=== PATIENT | female | born 1980 | race Caucasian/White ===

== ENCOUNTER → 2019-05-04 | Outpatient (CLI) | payer OTHER ==
[~2019-05-04] MED LIST: ASPI81CH PO; BUPR150ER PO; CODACE30 PO; ESCI10 PO; INSUL100I SC; LABE100 PO; LOPE2C PO; LOSA25 PO; METO25ER PO; NAPR500 PO; PANT40 PO; PNV PRENATAL P1 EACH; SPIR25 PO; URSO300 PO; VIENVA-28 TABL1 EACH PO; Verotin-Gr Cap1 EACH PO
[2019-05-05 15:07] LABS: HPV 16 Negative (Negative); HPV 18 Negative (Negative); HPV OTHER HR TYPES Negative (Negative)
== END ==
LOC: LAB SHORT 12:38 → LAB 12:38
PROVIDERS: Nurse Practitioner Family
DX: Z01.419 Encounter for gynecological examination (general) (routine) without abnormal findings (principal)
CPT/HCPCS: 87624; G0145

== ENCOUNTER 2022-11-06 09:47 | Day surgery (SDC) | payer OTHER ==
[~2022-11-06] VITALS: Ht 160 cm; Wt 81.9 kg
[~2022-11-06 09:47] MED LIST changes: +FENO54 PO
[2022-11-06] MEDS ORDERED: ZOLOFT10013 PO (10:16)
[2022-11-06] MEDS ORDERED: Vyvanse50 MG PO (10:16)
[2022-11-06] MEDS ORDERED: BUPROPION XL150 M1 PO (10:16)
--- NOTE | 2022-11-06 11:18 | NUR ---
11/06/22 1118 Salma Alfonso TIME OUT PERFORMED 1108 PRIOR TO ADMIN OF VERSED
[2022-11-06 11:57] VITALS: BP 137/82
== END 2022-11-06 12:24 | disposition home or self-care (01) ==
LOC: ORSCSDS 09:47
PROVIDERS: Orthopaedic Surgery
PROC: 0LN70ZZ Release Right Hand Tendon, Open Approach (ICD-10-PCS; principal; 2022-11-06 11:00)
PROC: 01N54ZZ Release Median Nerve, Percutaneous Endoscopic Approach (ICD-10-PCS; principal; 2022-11-06 11:00)
DX: G56.01 Carpal tunnel syndrome, right upper limb (principal); M65.351 Trigger finger, right little finger; M25.531 Pain in right wrist; I10 Essential (primary) hypertension; Z87.891 Personal history of nicotine dependence; Z79.899 Other long term (current) drug therapy
CPT/HCPCS: J2250; J7120

== ENCOUNTER → 2023-04-09 | Outpatient (CLI) | payer OTHER ==
[~2023-04-09] MED LIST changes: +BUPROPION XL150 M1 PO; +Vyvanse50 MG PO; +ZOLOFT10013 PO
[2023-04-13 19:39] LABS: PANCREATIC ELASTASE,FECAL >800 ug/g (>=100)
[2023-04-13 19:40] LABS: CALPROTECTIN,FECAL 7 ug/g (<=49)
== END ==
LOC: LAB SHORT 09:25 → LAB 09:25
PROVIDERS: Family Medicine
DX: R19.7 Diarrhea, unspecified (principal)
CPT/HCPCS: 82653; 83993

== ENCOUNTER → 2024-04-08 | Outpatient (CLI) | payer OTHER | LOC: LAB SHORT 19:21 → LAB 19:21 | DX: R30.0 Dysuria (principal) | CPT/HCPCS: 87086 ==

== ENCOUNTER 2024-04-14 15:42 | Inpatient (IN) | payer OTHER ==
[~2024-04-14] VITALS: Ht 160 cm; Wt 82.6 kg
[2024-04-14] MEDS ORDERED: NS 1,000 ML IV SCH ×2 (22:55→23:10)
[2024-04-14] MEDS ORDERED: Piperacillin/Tazobactam Sod 4.5 GM in NS 100 ML IV ONE (22:55)
[2024-04-14] MEDS ORDERED: Ketorolac Tromethamine 30mg Vial IV ONE (23:00)
[2024-04-14] MEDS ORDERED: HYDROmorphone HCl/Pf 1MG SYR IV PRN (23:10)
[2024-04-14] MEDS ORDERED: Lactated Ringer's 1,000 ML IV SCH (23:10)
[2024-04-14] MEDS ORDERED: Ondansetron HCl 2 MG / ML 2ML Vial IV ONE (23:10)
[2024-04-14] MEDS ORDERED: Ondansetron HCl 2 MG / ML 2ML Vial IV PRN (23:10)
[2024-04-14] MEDS ORDERED: Acetaminophen 325 MG TABLET PO ONE (23:10)
[2024-04-15 00:43] VITALS: BP 141/73
--- NOTE | 2024-04-15 04:27 | NUR ---
SHIFT SUMMARY MOHINI WAS ALERT AND FULLY ORIENTED WHEN SHE ARRIVED FROM THE ED. PT INDEPENDENT AND ABLE TO SAFELY AMBULATE. PT PAIN NOT REQUIRING MEDICATION AT THIS TIME. PT HAS MILD NAUSEA INTERMITTENTLY, DENYING NEED FOR ANTIEMETICS. PT FEVER OF 102.4 DURING ASSESMENT, TYLENOL GIVEN, REPEAT TEMP 99.2. NO ACUTE EVENTS, PT KEPT NPO FROM MIDNIGHT.
[2024-04-15 04:56] VITALS: BP 139/83
[2024-04-15] MEDS ORDERED: Acetaminophen 325 MG TABLET PO PRN (05:00)
[2024-04-15 07:01] VITALS: BP 129/69
[2024-04-15] MEDS ORDERED: Ketorolac Tromethamine 15mg Vial IV PRN (09:30)
[2024-04-15] MEDS ORDERED: FLU VACC TS2024-25(6MOS UP)/PF 45 MCG/0.5 ML SYRINGE IM PRN (10:45)
[2024-04-15] MEDS ORDERED: Lactated Ringer's 1,000 ML IV SCH (10:45)
[2024-04-15 15:32] VITALS: BP 135/82
--- NOTE | 2024-04-15 17:45 | NUR ---
SHIFT SUMMARY AOX4, PATIENT MEDICATED FOR FEVERS T/O SHIFT. PATIENT IS ON CL SHE IS NOT SCHEDULED FOR OR SEE SURGEON NOTES. PATIENT IS VOIDING, TOLERATING CL AND DENIES PAIN. PLAN IS TO MONITOR FEVERS.
[2024-04-15] MEDS ORDERED: Ondansetron HCl 2 MG / ML 2ML Vial IV PRN (19:00)
[2024-04-15] MEDS ORDERED: Potassium Chloride 20 MEQ/15 ML UDC PO ONE (19:00)
[2024-04-15] MEDS ORDERED: HYDROmorphone HCl/Pf 1MG SYR IV PRN (19:05)
[2024-04-15] MEDS ORDERED: Metoclopramide HCl 5MG / ML 2ML Vial IV PRN (19:05)
[2024-04-15 19:27] LABS: BASOPHILS ABSOLUTE AUTO 0.07 K/mm3 (0.00-0.23); BASOPHILS PERCENT AUTO 0 % (0-2); EOSINOPHILS ABSOLUTE AUTO 0.02 K/mm3 (0.00-0.68); EOSINOPHILS PERCENT AUTO 0 % (0-6); Hemoglobin 9.8 g/dL (11.5-16.0); IMMATURE GRAN PERCENT AUTO 3 % (0-1); LYMPHOCYTES ABSOLUTE AUTO 0.89 K/mm3 (0.84-5.20); LYMPHOCYTES PERCENT AUTO 4 % (21-46); MONOCYTES ABSOLUTE AUTO 1.01 K/mm3 (0.16-1.47); MONOCYTES PERCENT AUTO 5 % (4-13); Mean Corpuscular HGB 29.9 pg (26.0-34.0); Mean Corpuscular HGB Conc 33.8 g/dL (31.5-36.5); Mean Corpuscular Volume 88 fL (80-100); Mean Platelet Volume 7.7 fL (9.1-12.4); NEUTROPHILS ABSOLUTE AUTO 18.61 K/mm3 (1.96-9.15); NEUTROPHILS PERCENT AUTO 88 % (41-73); Platelet Count 311 K/mm3 (150-400); RDW Coefficient Variation 12.1 % (11.7-14.2); RDW Standard Deviation 38.8 fL (35.1-46.3); Red Blood Cell Count 3.28 M/mm3 (3.80-5.20)
[2024-04-15 19:41] LABS: Source, Urine Clean Catch
[2024-04-15 19:43] LABS: Albumin, Blood 2.1 g/dL (3.4-5.0); Albumin/Globulin Ratio 0.5 (0.8-1.8); Bilirubin, Total 0.5 mg/dL (0.1-1.0); Bun/Creatinine Ratio 9.2 (12.0-20.0); Calcium, Blood 8.3 mg/dL (8.5-10.1); Creatinine, Blood 0.65 mg/dL (0.40-1.00); Globulin, Blood 4.2 g/dL (2.2-4.0); Total Protein, Blood 6.3 g/dL (6.4-8.2)
[2024-04-15 19:47] LABS: Appearance, Urine Clear (Clear); Bilirubin, Urine Neg (Neg); Blood, Urine Neg (Neg); Glucose Qualitative, Urine Neg (Neg); Ketones, Urine Neg (Neg); Leukocyte Esterase, Urine Neg (Neg); Nitrite, Urine Neg (Neg); Protein, Urine Neg (Neg); Specific Gravity, Urine 1.005 (1.003-1.022); Urobilinogen, Urine NORM (Normal)
[2024-04-15 19:57] LABS: Color, Urine Pale Yellow (P-Yellow)
[2024-04-15 20:30] VITALS: BP 120/60
[2024-04-15] MEDS ORDERED: CefTRIAXone Sodium 2,000 MG in NS 100 ML IV SCH (22:54)
[2024-04-16 03:33] VITALS: BP 148/79
--- NOTE | 2024-04-16 04:30 | NUR ---
SHIFT SUMMARY MOHINI WAS ALERT AND FULLY ORIENTED ON ASSESMENT. PT DISCOVERED TO HAVE SALMONELLA. PT HAVING BLADDER PAIN, UA NEGATIVE. CT SHOWS LARGE COMPLEX OVARIAN CYST. COLLET MAKING MACHINE OPERATOR CONSULTED. PT HAS HAD A TEMP RANGING 99-103 T/O NIGHT, RESPONDING TO TYLENOL AND TORRADOL, BUT RETURNING. NO ACUTE EVENTS TONIGHT. NO OTHER CHANGES NOTED.
[2024-04-16 05:50] LABS: Albumin/Globulin Ratio 0.5 (0.8-1.8); Bilirubin, Total 0.5 mg/dL (0.1-1.0); Bun/Creatinine Ratio 9.5 (12.0-20.0); Calcium, Blood 8.1 mg/dL (8.5-10.1); Creatinine, Blood 0.63 mg/dL (0.40-1.00); Globulin, Blood 4.1 g/dL (2.2-4.0); Potassium, Blood 3.2 mmol/L (3.5-5.5); Total Protein, Blood 6.1 g/dL (6.4-8.2)
[2024-04-16 07:22] VITALS: BP 151/75
[2024-04-16] MEDS ORDERED: buPROPion HCL 150 MG TAB.SR.12H PO SCH (09:00)
[2024-04-16] MEDS ORDERED: Metoprolol Succinate 25 MG TABCR PO SCH (09:00)
[2024-04-16] MEDS ORDERED: Fenofibrate 67 MG Cap PO SCH (09:00)
[2024-04-16] MEDS ORDERED: Sertraline HCl 100 MG Tab PO SCH (09:00)
[2024-04-16] MEDS ORDERED: Losartan Potassium 25 MG Tab PO SCH (09:00)
[2024-04-16] MEDS ORDERED: Potassium Chloride 20 MEQ TabCR PO ONE (10:00)
[2024-04-16 10:01] LABS: BASOPHILS ABSOLUTE AUTO 0.05 K/mm3 (0.00-0.23); BASOPHILS PERCENT AUTO 0 % (0-2); EOSINOPHILS ABSOLUTE AUTO 0.01 K/mm3 (0.00-0.68); EOSINOPHILS PERCENT AUTO 0 % (0-6); Hematocrit 29.9 % (33.0-51.0); Hemoglobin 9.9 g/dL (11.5-16.0); IMMATURE GRAN ABSOLUTE AUTO 0.62 K/mm3 (0.00-0.10); IMMATURE GRAN PERCENT AUTO 3 % (0-1); LYMPHOCYTES PERCENT AUTO 3 % (21-46); MONOCYTES ABSOLUTE AUTO 0.83 K/mm3 (0.16-1.47); MONOCYTES PERCENT AUTO 4 % (4-13); Mean Corpuscular HGB 29.9 pg (26.0-34.0); Mean Corpuscular HGB Conc 33.1 g/dL (31.5-36.5); Mean Corpuscular Volume 90 fL (80-100); Mean Platelet Volume 7.9 fL (9.1-12.4); NEUTROPHILS ABSOLUTE AUTO 19.95 K/mm3 (1.96-9.15); NEUTROPHILS PERCENT AUTO 90 % (41-73); Platelet Count 353 K/mm3 (150-400); RDW Coefficient Variation 12.2 % (11.7-14.2); RDW Standard Deviation 40.1 fL (35.1-46.3); Red Blood Cell Count 3.31 M/mm3 (3.80-5.20); White Blood Cell Count 22.16 K/mm3 (4.00-11.30)
[2024-04-16] MEDS ORDERED: Piperacillin/Tazobactam Sod 3.375 GM in NS 100 ML IV SCH (12:30)
[2024-04-16] MEDS ORDERED: NS 250 ML IV PRN (12:35)
[2024-04-16 14:43] VITALS: BP 138/73
--- NOTE | 2024-04-16 16:32 | NUR ---
SHIFT SUMMARY: PATIENT A/OX4, CALM, PLEASANT AND COOPERATIVE c CARE. PATIENT HAD A MAX TEMP OF 102.5 THIS SHIFT, MEDICATED FOR FEVER PER EMAR c SLIGHT EFFECT, DR. DURBIN IS AWARE OF THIS ISSUE. PATIENT IV ABX CHANGED TO ZOSYN TODAY. PATIENT HAD MRI TO PELVIS DONE TODAY, AWAITING FOR RESULT. PATIENT REPORTS PAIN TO ABDOMEN, MEDICATED PER EMAR c GOOD EFFECT. PATIENT DENIES N/V, SOB, CP/PRESSURE AND DIZZINESS. PATIENT CONTINENT OF BLADDER, AMBULATES TO BATHROOM INDEPENDENTLY T/O SHIFT. PATIENT RECEIVED SCHEDULED MEDS PER EMAR. VITAL SIGNS REVIEWED. CALL LIGHT IN REACH.
[2024-04-16 19:49] VITALS: BP 144/85
[2024-04-16] MEDS ORDERED: Lactobacil 2-S.Thermo-Bifido 1 1 Cap PO SCH (21:00)
[2024-04-17 03:10] VITALS: BP 133/73
--- NOTE | 2024-04-17 04:06 | NUR ---
SHIFT SUMMARY MOHINI WAS ALERT AND FULLY ORIENTED ON ASSESMENT. PAIN WELL MANAGED. PT STILL HAVING INTERMITTENT NAUSEA, NO VOMITING THIS SHIFT. AVERAGE TEMP TONIGHT LOWER THAN PREVIOUS NIGHT, STILL ELEVATED 100-102 DEGREES PT PLACED ON CONTACT PRECAUTIONS FOR SALMONELLA. NO ACUTE EVENTS TONIGHT. NO NOTED CHANGES TO PT CONDITION.
[2024-04-17 04:36] LABS: BASOPHILS ABSOLUTE AUTO 0.04 K/mm3 (0.00-0.23); BASOPHILS PERCENT AUTO 0 % (0-2); EOSINOPHILS ABSOLUTE AUTO 0.01 K/mm3 (0.00-0.68); EOSINOPHILS PERCENT AUTO 0 % (0-6); Hematocrit 26.2 % (33.0-51.0); Hemoglobin 8.8 g/dL (11.5-16.0); IMMATURE GRAN ABSOLUTE AUTO 0.28 K/mm3 (0.00-0.10); IMMATURE GRAN PERCENT AUTO 2 % (0-1); LYMPHOCYTES ABSOLUTE AUTO 0.87 K/mm3 (0.84-5.20); LYMPHOCYTES PERCENT AUTO 5 % (21-46); MONOCYTES ABSOLUTE AUTO 0.97 K/mm3 (0.16-1.47); MONOCYTES PERCENT AUTO 5 % (4-13); Mean Corpuscular HGB Conc 33.6 g/dL (31.5-36.5); Mean Corpuscular Volume 89 fL (80-100); Mean Platelet Volume 7.7 fL (9.1-12.4); NEUTROPHILS ABSOLUTE AUTO 16.54 K/mm3 (1.96-9.15); NEUTROPHILS PERCENT AUTO 88 % (41-73); Platelet Count 284 K/mm3 (150-400); RDW Coefficient Variation 12.2 % (11.7-14.2); RDW Standard Deviation 40.2 fL (35.1-46.3); Red Blood Cell Count 2.93 M/mm3 (3.80-5.20); White Blood Cell Count 18.71 K/mm3 (4.00-11.30)
[2024-04-17 05:05] LABS: Albumin, Blood 1.9 g/dL (3.4-5.0); Albumin/Globulin Ratio 0.5 (0.8-1.8); Bilirubin, Direct 0.2 mg/dL (0.0-0.3); Bilirubin, Indirect 0.3 mg/dL (0.1-0.7); Bilirubin, Total 0.5 mg/dL (0.1-1.0); Bun/Creatinine Ratio 9.3 (12.0-20.0); Calcium, Blood 7.9 mg/dL (8.5-10.1); Creatinine, Blood 0.54 mg/dL (0.40-1.00); Globulin, Blood 3.9 g/dL (2.2-4.0); Potassium, Blood 3.7 mmol/L (3.5-5.5); Total Protein, Blood 5.8 g/dL (6.4-8.2)
[2024-04-17 07:22] VITALS: BP 130/72
[2024-04-17] MEDS ORDERED: Lactated Ringer's 1,000 ML IV SCH (09:30)
--- NOTE | 2024-04-17 10:00 | NUR ---
DR FELTON IN TO SEE PT.
--- NOTE | 2024-04-17 11:18 | NUR ---
dr mercer in to see pt.
[2024-04-17 12:56] LABS: Adenovirus Not Detected (NOT DETECT); Bordetella pertussis Not Detected (NOT DETECT); Chlamydophila pneumoniae Not Detected (NOT DETECT); Coronavirus 229E Not Detected (NOT DETECT); Coronavirus HKU1 Not Detected (NOT DETECT); Coronavirus NL63 Not Detected (NOT DETECT); Coronavirus OC43 Not Detected (NOT DETECT); Human Metapneumovirus Not Detected (NOT DETECT); Human Rhinovirus/Enterovirus Not Detected (NOT DETECT); Influenza A/2009-H1 Not Detected (NOT DETECT); Influenza A/H1 Not Detected (NOT DETECT); Influenza A/H3 Not Detected (NOT DETECT); Influenza B Not Detected (NOT DETECT); Mycoplasma pneumoniae Not Detected (NOT DETECT); Parainfluenza Virus 1 Not Detected (NOT DETECT); Parainfluenza Virus 2 Not Detected (NOT DETECT); Parainfluenza Virus 3 Not Detected (NOT DETECT); Parainfluenza Virus 4 Not Detected (NOT DETECT); Respiratory Syncytial Virus Not Detected (NOT DETECT); SARS-Cov-2 (COVID-19), BioFire Not Detected (NOT DETECT)
[2024-04-17] MEDS ORDERED: Enoxaparin 40 MG/0.4 ML SYR SC SCH (15:00)
--- NOTE | 2024-04-17 15:26 | NUR ---
PT HAS FOLLOW UP APPT W/DR FELTON ON 04/21/24 AT 0900.
[2024-04-17 16:52] VITALS: BP 135/78
--- NOTE | 2024-04-17 17:09 | NUR ---
SUMMARY PT HAS BEEN FEBRILE T/O DAY. ALTERNATED IN BETWEEN TYLENOL AND TORADOL PER ORDERS FOR FEVER. MEDICATED PT PER ORDERS W/DILAUDID T/O DAY FOR LOWER ABD PAIN. PT VOIDING. DID NOT HAVE BM THIS SHIFT. INDEPENDENT IN ROOM. CALL LIGHT IN REACH.
[2024-04-17 19:42] VITALS: BP 126/73
[2024-04-17] MEDS ORDERED: Acetaminophen 325 MG TABLET PO ONE (20:30)
--- NOTE | 2024-04-18 04:39 | NUR ---
.SHIFT SUMMARY VSS, FEVERS NOTED T/O THE NIGHT. PT MEDICATED PER EMAR FOR TEMPERATURE CONTROL, AND RECIEVED ORDER FOR EARLY TYLENOL DOSE X1 W/ MINIMAL IMPROVEMENT. PT NOTED TO HAVE EPISODES OF DISPHORESIS, AND OTHERS OF SHIVERING. PT HAS SLEPT ON AND OFF T/O THE NIGHT. PT ENDORSES LOWER ABD PAIN. PT MEDICATED PER EMAR W/TOLLERABLE RESULTS. SHE IS UTILIZING AN ICE PACK PRN W/GOOD RESULTS. OVERALL, NO ACUTE EVENTS NOTED. PLAN TO CONTINUE IV ABX
[2024-04-18 06:02] VITALS: BP 137/81
[2024-04-18 06:30] LABS: BASOPHILS ABSOLUTE AUTO 0.05 K/mm3 (0.00-0.23); BASOPHILS PERCENT AUTO 0 % (0-2); EOSINOPHILS ABSOLUTE AUTO 0.03 K/mm3 (0.00-0.68); EOSINOPHILS PERCENT AUTO 0 % (0-6); Hematocrit 29.3 % (33.0-51.0); Hemoglobin 9.7 g/dL (11.5-16.0); IMMATURE GRAN ABSOLUTE AUTO 0.38 K/mm3 (0.00-0.10); IMMATURE GRAN PERCENT AUTO 2 % (0-1); LYMPHOCYTES ABSOLUTE AUTO 0.78 K/mm3 (0.84-5.20); LYMPHOCYTES PERCENT AUTO 4 % (21-46); MONOCYTES ABSOLUTE AUTO 0.77 K/mm3 (0.16-1.47); MONOCYTES PERCENT AUTO 4 % (4-13); Mean Corpuscular HGB 29.8 pg (26.0-34.0); Mean Corpuscular HGB Conc 33.1 g/dL (31.5-36.5); Mean Corpuscular Volume 90 fL (80-100); Mean Platelet Volume 7.9 fL (9.1-12.4); NEUTROPHILS ABSOLUTE AUTO 18.49 K/mm3 (1.96-9.15); NEUTROPHILS PERCENT AUTO 90 % (41-73); Platelet Count 340 K/mm3 (150-400); RDW Coefficient Variation 12.4 % (11.7-14.2); RDW Standard Deviation 41.1 fL (35.1-46.3); Red Blood Cell Count 3.25 M/mm3 (3.80-5.20)
[2024-04-18 06:52] LABS: Albumin/Globulin Ratio 0.5 (0.8-1.8); Bilirubin, Total 0.8 mg/dL (0.1-1.0); Bun/Creatinine Ratio 7.1 (12.0-20.0); Calcium, Blood 8.5 mg/dL (8.5-10.1); Creatinine, Blood 0.71 mg/dL (0.40-1.00); Globulin, Blood 4.4 g/dL (2.2-4.0); Potassium, Blood 3.3 mmol/L (3.5-5.5); Total Protein, Blood 6.4 g/dL (6.4-8.2)
[2024-04-18 08:03] VITALS: BP 142/83
[2024-04-18] MEDS ORDERED: Potassium Chloride 20 MEQ TabCR PO ONE (09:40)
--- NOTE | 2024-04-18 10:32 | NUR ---
DR MALONEY IN TO SEE PT.
--- NOTE | 2024-04-18 13:38 | NUR ---
DR ESCOBAR IN TO SEE PT.
--- NOTE | 2024-04-18 14:32 | NUR ---
LAB IN TO DRAW PT.
[2024-04-18 15:45] LABS: Ferritin, Serum 582 ng/mL (8-252); Iron Serum 14 ug/dL (50-170); Percent Saturation 5.7 % (15.0-50.0); Total Iron Binding Capacity 247 ug/dL (250-450)
[2024-04-18 16:03] LABS: C-REACTIVE PROTEIN, EXT RANGE >19.000 mg/dL (0.000-0.300)
[2024-04-18 16:37] VITALS: BP 139/86
[2024-04-18 16:49] LABS: Bacterial Vaginosis PCR Negative (NEGATIVE); Candida glabrata-krusei, PCR NOT DETECTED (NOT DETECT)
[2024-04-18 17:10] LABS: Candida Group, PCR DETECTED (NOT DETECT)
[2024-04-18 17:10] LABS: Campylobacter Sp Not Detected (NOT DETECT); Plesiomonas Shigelloides Not Detected (NOT DETECT); Salmonella Sp Not Detected (NOT DETECT); Vibrio Sp Not Detected (NOT DETECT); Yersinia Enterocolitica Not Detected (NOT DETECT)
[2024-04-18 17:11] LABS: Adenovirus F 40/41 Not Detected (NOT DETECT); Astrovirus Not Detected (NOT DETECT); Cryptosporidium Not Detected (NOT DETECT); Cyclospora Cayetanensis Not Detected (NOT DETECT); E. Coli O157 Not Detected (NOT DETECT); Entamoeba Histolytica Not Detected (NOT DETECT); Enteroaggregative E. coli-EAEC Not Detected (NOT DETECT); Enteropathogenic E. coli-EPEC Not Detected (NOT DETECT); Enterotoxigenic E. coli-ETEC Not Detected (NOT DETECT); Giardia Lamblia Not Detected (NOT DETECT); Norovirus GI/GII Not Detected (NOT DETECT); Rotavirus A Not Detected (NOT DETECT); Sapovirus Not Detected (NOT DETECT); Shiga Toxin-prod E. coli-STEC Not Detected (NOT DETECT); Shigella/Enteroin E. coli-EIEC Not Detected (NOT DETECT); Vibrio Cholerae Not Detected (NOT DETECT)
--- NOTE | 2024-04-18 17:12 | NUR ---
SUMMARY PT HAS BEEN FEBRILE T/O SHIFT. MEDICATED PER ORDERS FOR FEVER, PAIN AND NAUSEA DURING SHIFT. PT HAD BM, WHICH WAS SENT OFF PER ORDERS. VAG SWAB COMPLETED PER ORDERS. LABS DRAWN. CT COMPLETED. PT RECEIVING FLUIDS AND ABX PER EMAR. PT INDEPENDENT IN ROOM. CALL LIGHT IN REACH.
[2024-04-18 17:21] LABS: Chlamydia Trachomatis Vaginal NOT DETECTED (NOT DETECT); Neisseria Gonorrhoea Vaginal NOT DETECTED (NOT DETECT)
[2024-04-18 19:48] VITALS: BP 138/74
[2024-04-18] MEDS ORDERED: Doxycycline Hyclate 100 MG in Dextrose 5% 250 ML IV SCH (21:00)
[2024-04-19 03:36] VITALS: BP 152/90
[2024-04-19 06:17] LABS: BASOPHILS ABSOLUTE AUTO 0.03 K/mm3 (0.00-0.23); BASOPHILS PERCENT AUTO 0 % (0-2); EOSINOPHILS ABSOLUTE AUTO 0.03 K/mm3 (0.00-0.68); EOSINOPHILS PERCENT AUTO 0 % (0-6); Hematocrit 24.8 % (33.0-51.0); Hemoglobin 8.3 g/dL (11.5-16.0); IMMATURE GRAN ABSOLUTE AUTO 0.28 K/mm3 (0.00-0.10); IMMATURE GRAN PERCENT AUTO 1 % (0-1); LYMPHOCYTES ABSOLUTE AUTO 0.61 K/mm3 (0.84-5.20); LYMPHOCYTES PERCENT AUTO 3 % (21-46); MONOCYTES ABSOLUTE AUTO 0.82 K/mm3 (0.16-1.47); MONOCYTES PERCENT AUTO 4 % (4-13); Mean Corpuscular HGB 29.5 pg (26.0-34.0); Mean Corpuscular HGB Conc 33.5 g/dL (31.5-36.5); Mean Corpuscular Volume 88 fL (80-100); Mean Platelet Volume 8.2 fL (9.1-12.4); NEUTROPHILS ABSOLUTE AUTO 20.11 K/mm3 (1.96-9.15); NEUTROPHILS PERCENT AUTO 92 % (41-73); Platelet Count 356 K/mm3 (150-400); RDW Coefficient Variation 12.4 % (11.7-14.2); RDW Standard Deviation 39.8 fL (35.1-46.3); Red Blood Cell Count 2.81 M/mm3 (3.80-5.20); White Blood Cell Count 21.88 K/mm3 (4.00-11.30)
[2024-04-19 06:32] LABS: Albumin, Blood 1.8 g/dL (3.4-5.0); Albumin/Globulin Ratio 0.5 (0.8-1.8); Bilirubin, Total 0.6 mg/dL (0.1-1.0); Bun/Creatinine Ratio 7.3 (12.0-20.0); Calcium, Blood 8.4 mg/dL (8.5-10.1); Creatinine, Blood 0.55 mg/dL (0.40-1.00); Globulin, Blood 3.8 g/dL (2.2-4.0); Potassium, Blood 3.5 mmol/L (3.5-5.5); Total Protein, Blood 5.6 g/dL (6.4-8.2)
--- NOTE | 2024-04-19 07:16 | NUR ---
SHIFT SUMMARY; PATIENT SLEPT IN SHORT INTERVALS. DID HAVE 1 LOOSE BM. REMAINS IN CONTACT ISOALTION FOR SALMONELLA. LR/100ML/HR INFUSING. LOW GRADE TEMPS TONIGHT, MEDICATED FOR ABD. PAIN FREQUENTLY. NO NAUSEA.
[2024-04-19 07:34] VITALS: BP 126/66
[2024-04-19 14:11] VITALS: BP 135/70
[2024-04-19 18:59] VITALS: BP 120/70
--- NOTE | 2024-04-19 19:23 | NUR ---
SHIFT SUMMARY SHE WAS NPO FOR HER HIDA SCAN TODAY BUT ABLE TO EAT AFTERWARDS, TOLERATED DIET POST PROCEDURE, PLAN FOR NPO AT MIDNIGHT FOR POSSIBLE SURGERY TOMORROW PENDING SURGERY EVALUATION OF HIDA SCAN RESULTS. SHE WAS STILL FEVERISH TODAY WHICH WAS MANAGED PER EMAR, T MAX 103. NO ACUTE EVENTS THIS SHIFT, CALL LIGHT IN REACH.
[2024-04-20] VITALS (18 sets, daily range): BP systolic 99–127; BP diastolic 58–80
--- NOTE | 2024-04-20 04:34 | NUR ---
SHIFT SUMMARY S/P ABD PAIN. NO ACUTE CHANGES OVERNIGHT. VSS. PT NPO SINCE 0000 IN ANTICIPATION OF SURG LATER TODAY. IV FLUIDS/ABX INFUSING PER EMAR. VOIDING. IND IN ROOM. PT REPORTS PAIN TOLERABLE, MEDICATED PER EMAR. CALL LIGHT IN REACH, WILL REPORT TO DAY RN.
[2024-04-20 07:08] LABS: BASOPHILS ABSOLUTE AUTO 0.03 K/mm3 (0.00-0.23); BASOPHILS PERCENT AUTO 0 % (0-2); EOSINOPHILS ABSOLUTE AUTO 0.06 K/mm3 (0.00-0.68); EOSINOPHILS PERCENT AUTO 0 % (0-6); Hematocrit 25.3 % (33.0-51.0); Hemoglobin 8.3 g/dL (11.5-16.0); IMMATURE GRAN ABSOLUTE AUTO 0.22 K/mm3 (0.00-0.10); IMMATURE GRAN PERCENT AUTO 1 % (0-1); LYMPHOCYTES ABSOLUTE AUTO 0.84 K/mm3 (0.84-5.20); LYMPHOCYTES PERCENT AUTO 5 % (21-46); MONOCYTES ABSOLUTE AUTO 0.89 K/mm3 (0.16-1.47); MONOCYTES PERCENT AUTO 5 % (4-13); Mean Corpuscular HGB 29.5 pg (26.0-34.0); Mean Corpuscular HGB Conc 32.8 g/dL (31.5-36.5); Mean Corpuscular Volume 90 fL (80-100); Mean Platelet Volume 8.1 fL (9.1-12.4); NEUTROPHILS ABSOLUTE AUTO 16.06 K/mm3 (1.96-9.15); NEUTROPHILS PERCENT AUTO 89 % (41-73); Platelet Count 359 K/mm3 (150-400); RDW Coefficient Variation 12.4 % (11.7-14.2); RDW Standard Deviation 40.8 fL (35.1-46.3); Red Blood Cell Count 2.81 M/mm3 (3.80-5.20)
[2024-04-20 07:24] LABS: Albumin, Blood 1.8 g/dL (3.4-5.0); Albumin/Globulin Ratio 0.5 (0.8-1.8); Bilirubin, Total 0.5 mg/dL (0.1-1.0); Bun/Creatinine Ratio 7.4 (12.0-20.0); Calcium, Blood 8.2 mg/dL (8.5-10.1); Creatinine, Blood 0.54 mg/dL (0.40-1.00); Globulin, Blood 3.8 g/dL (2.2-4.0); Magnesium, Blood 1.9 mg/dL (1.6-2.4); Phosphorus, Blood 2.7 mg/dL (2.5-4.9); Potassium, Blood 3.4 mmol/L (3.5-5.5); Total Protein, Blood 5.6 g/dL (6.4-8.2)
[2024-04-20] MEDS ORDERED: Potassium Chloride 20 MEQ in NS 90 ML IV ONE (07:45)
[2024-04-20 08:13] LABS: ANTI-NUCLEAR AB ANA,IGG ELISA None Detected (None Detected)
[2024-04-20] MEDS ORDERED: Lactated Ringer's 1,000 ML IV SCH (09:55)
[2024-04-20] MEDS ORDERED: Bupivacaine 0.5% HCl 5 MG/ML 30MLVIAL ONE (10:17)
--- NOTE | 2024-04-20 10:28 | NUR ---
History, Chart, Medications and Allergies reviewed before start of procedure. Lungs clear T/O to Auscultation. Pre-Op teaching done. Pt verbalizes understanding. Patient confirms NPO status and agrees with scheduled surgery.
[2024-04-20 10:36] LABS: HEPATITIS A ANTIBODY, IGM Negative (Negative); HEPATITIS B CORE ANTIBODY, IGM Negative (Negative); HEPATITIS B SURFACE ANTIGEN Negative (Negative); HEPATITIS C AB CIA INTERP Negative (Negative); HEPATITIS C ANTIBODY CIA INDEX 0.09 IV
[2024-04-20] MEDS ORDERED: FentaNYL Citrate 50 MCG/ML 2 ML Injection ONE (10:40)
[2024-04-20] MEDS ORDERED: propofoL 20 ML IV ONE (10:40)
[2024-04-20] MEDS ORDERED: Ondansetron HCl 2 MG / ML 2ML Vial ONE (10:41)
[2024-04-20] MEDS ORDERED: Dexamethasone Sod Phos 10 MG/ML 1ML VIAL ONE (10:41)
[2024-04-20] MEDS ORDERED: Ketorolac Tromethamine 30mg Vial ONE (10:41)
[2024-04-20] MEDS ORDERED: Rocuronium Bromide 10 MG/ML 5ML Injection IV ONE ×2 (10:41→11:57)
[2024-04-20] MEDS ORDERED: Lidocaine HCl 2% 20 ML MDV ONE (10:41)
[2024-04-20] MEDS ORDERED: HYDROmorphone HCl/Pf 1MG SYR IV PRN (10:45)
[2024-04-20] MEDS ORDERED: FentaNYL Citrate 50 MCG/ML 2 ML Injection IV PRN (10:50)
[2024-04-20] MEDS ORDERED: Droperidol 5 mg/2 ml Vial IV PRN (10:50)
[2024-04-20] MEDS ORDERED: Albuterol 2.5 MG/3 ML VIAL INH PRN (10:50)
--- NOTE | 2024-04-20 11:27 | NUR ---
04/20/24 1127 Soumya Molina PATIENT ON SCHEDULED ANTIBIOTICS. DOXYCYCLINE HELD DURING SURGERY, SEE MD'S AND ANESTHESIA NOTES.
[2024-04-20 11:37] LABS: HIV 1,2 COMBO ANTIGEN/ANTIBODY Negative (Negative)
[2024-04-20] MEDS ORDERED: Sugammadex Sodium 200 MG/2ML SDV (100 MG/ML) ONE (12:26)
[2024-04-20] MEDS ORDERED: HYDROmorphone HCl/Pf 1MG SYR ONE (12:26)
[2024-04-20] MEDS ORDERED: Naloxone HCl 0.4MG / ML 1ML Vial ONE (12:44)
[2024-04-20] MEDS ORDERED: Haloperidol Lactate Inj. 5 MG/ML Injection ONE (12:59)
[2024-04-20] MEDS ORDERED: HYDROcodone 5-APAP 325 TAB PO PRN (14:10)
--- NOTE | 2024-04-20 16:23 | NUR ---
Leaking from surgical site, nurse notified changed gown and SCDs.
--- NOTE | 2024-04-20 17:16 | NUR ---
Pt states they would like something for pain RN notified
--- NOTE | 2024-04-20 19:18 | NUR ---
SHIFT SUMMARY POD0 LAP SAM, A/OX4, VSS, TOLERATING PO, SHE HAS BEEN AFEBRILE SINCE SURGERY, AZ DRAIN HAS SS DRAINAGE IN THE BULB AND A LARGE AMOUNT COMING OUT AROUND THE DRAIN AT POINT OF INSERTION. LAP SITES C/D/I WITH GAUZE AND TEGADERM IN PLACE. NO ACUTE EVENTS, CALL LIGHT IN REACH.
[2024-04-21 01:13] VITALS: BP 132/71
[2024-04-21 03:54] LABS: MYELOPEROXIDASE (MPO) AB,IGG 0 AU/mL (0-19); SERINE PROTEINASE 3 PR3 AB,IGG 1 AU/mL (0-19)
--- NOTE | 2024-04-21 04:43 | NUR ---
NOC SUMMARY- PAIN MANAGED WELL. PT AMBULATORY AND VOIDING. PT EATING AND DRINKING. PT AZ DRAINING SS. THERE CONTINUES TO BE SS FLUID DRAINING AROUND AZ TUBE. PT DRESSING REPLACED NEEDED. PT HAS BEEN ABLE TO SLEEP THIS SHIFT. NO NEW ISSUES. PT IN GOOD SPIRITS. CALL LIGHT IN DEBBIE AND BED ALARM ON FOR SAFETY.
[2024-04-21 05:14] VITALS: BP 127/76
[2024-04-21 07:17] VITALS: BP 116/67
[2024-04-21] MEDS ORDERED: LORazepam 1 MG Tab PO ONE ×2 (08:00)
[2024-04-21 09:32] LABS: BASOPHILS ABSOLUTE AUTO 0.02 K/mm3 (0.00-0.23); BASOPHILS PERCENT AUTO 0 % (0-2); EOSINOPHILS ABSOLUTE AUTO 0.01 K/mm3 (0.00-0.68); EOSINOPHILS PERCENT AUTO 0 % (0-6); Hematocrit 30.9 % (33.0-51.0); Hemoglobin 9.7 g/dL (11.5-16.0); IMMATURE GRAN ABSOLUTE AUTO 0.15 K/mm3 (0.00-0.10); IMMATURE GRAN PERCENT AUTO 1 % (0-1); LYMPHOCYTES ABSOLUTE AUTO 0.73 K/mm3 (0.84-5.20); LYMPHOCYTES PERCENT AUTO 5 % (21-46); MONOCYTES ABSOLUTE AUTO 0.57 K/mm3 (0.16-1.47); MONOCYTES PERCENT AUTO 4 % (4-13); Mean Corpuscular HGB Conc 31.4 g/dL (31.5-36.5); Mean Corpuscular Volume 92 fL (80-100); Mean Platelet Volume 8.1 fL (9.1-12.4); NEUTROPHILS PERCENT AUTO 90 % (41-73); Platelet Count 448 K/mm3 (150-400); RDW Coefficient Variation 12.3 % (11.7-14.2); RDW Standard Deviation 42.1 fL (35.1-46.3); Red Blood Cell Count 3.35 M/mm3 (3.80-5.20); White Blood Cell Count 14.68 K/mm3 (4.00-11.30)
[2024-04-21 09:51] LABS: Albumin, Blood 1.9 g/dL (3.4-5.0); Albumin/Globulin Ratio 0.5 (0.8-1.8); Bilirubin, Total 0.3 mg/dL (0.1-1.0); Bun/Creatinine Ratio 15.4 (12.0-20.0); Calcium, Blood 8.5 mg/dL (8.5-10.1); Creatinine, Blood 0.59 mg/dL (0.40-1.00); Globulin, Blood 4.2 g/dL (2.2-4.0); Potassium, Blood 3.3 mmol/L (3.5-5.5); Total Protein, Blood 6.1 g/dL (6.4-8.2)
[2024-04-21] MEDS ORDERED: Potassium Chloride 20 MEQ/15 ML UDC PO ONE (11:00)
[2024-04-21 15:40] VITALS: BP 123/72
--- NOTE | 2024-04-21 16:34 | NUR ---
SHIFT SUMMARY PT IS POD1 FOR LAP SAM. LAP SITES X3 W/ STERI STRIPS C/D/I, AZ DRAIN REMOVAL SITE DRAINING SEROUS FLUID, DRESSING W/ GAUZE AND TEGADERM CHANGED X2 WHEN SATURATED. PT MEDICATED FOR PAIN PER EMAR W/ TOLERABLE RESULTS. PT TOLERATING REG DIET, DENIES NAUSEA. PT AMBULATING INDEPENDENTLY TO BR, VOIDING, DRINKING FLUIDS. NO FEVERS THIS SHIFT. VSS. PT CALLING APPROPRIATELY, PLAN TO DC TOMORROW.
[2024-04-21 19:04] VITALS: BP 125/67
[2024-04-21] MEDS ORDERED: Acetaminophen 325 MG TABLET PO ONE (21:50)
[2024-04-22 04:34] VITALS: BP 132/76
[2024-04-22 04:46] LABS: BASOPHILS ABSOLUTE AUTO 0.03 K/mm3 (0.00-0.23); BASOPHILS PERCENT AUTO 0 % (0-2); EOSINOPHILS ABSOLUTE AUTO 0.02 K/mm3 (0.00-0.68); EOSINOPHILS PERCENT AUTO 0 % (0-6); Hematocrit 31.4 % (33.0-51.0); IMMATURE GRAN ABSOLUTE AUTO 0.18 K/mm3 (0.00-0.10); IMMATURE GRAN PERCENT AUTO 1 % (0-1); LYMPHOCYTES ABSOLUTE AUTO 1.24 K/mm3 (0.84-5.20); LYMPHOCYTES PERCENT AUTO 8 % (21-46); MONOCYTES ABSOLUTE AUTO 0.85 K/mm3 (0.16-1.47); MONOCYTES PERCENT AUTO 5 % (4-13); Mean Corpuscular HGB Conc 31.8 g/dL (31.5-36.5); Mean Corpuscular Volume 91 fL (80-100); Mean Platelet Volume 7.7 fL (9.1-12.4); NEUTROPHILS ABSOLUTE AUTO 13.57 K/mm3 (1.96-9.15); NEUTROPHILS PERCENT AUTO 86 % (41-73); Platelet Count 552 K/mm3 (150-400); RDW Coefficient Variation 12.4 % (11.7-14.2); RDW Standard Deviation 41.2 fL (35.1-46.3); Red Blood Cell Count 3.45 M/mm3 (3.80-5.20); White Blood Cell Count 15.89 K/mm3 (4.00-11.30)
[2024-04-22 05:07] LABS: Albumin/Globulin Ratio 0.5 (0.8-1.8); Bilirubin, Total 0.4 mg/dL (0.1-1.0); Bun/Creatinine Ratio 8.7 (12.0-20.0); Calcium, Blood 8.6 mg/dL (8.5-10.1); Creatinine, Blood 0.69 mg/dL (0.40-1.00); Globulin, Blood 4.2 g/dL (2.2-4.0); Total Protein, Blood 6.2 g/dL (6.4-8.2)
[2024-04-22] MEDS ORDERED: Ibuprofen 400 MG Tab PO PRN (05:10)
--- NOTE | 2024-04-22 06:36 | NUR ---
@2149 NOTIFIED [facility] HOSPITALIST PTS TEMP 101.0. EXTRA DOSE OF TYLENOL ORDERED. PT TEMP DECLINED,THEN ELEVATED AGAIN.I CALLED DR MONTES DE OCA AND ADVISED TEMPS HAVE CLIMBED HIGH 103. COOLING MEASURES IN PLACE. ORDERED IBUPROFEN PRN AND WAS GIVEN.TEMP LAST 100.6.
[2024-04-22 06:58] VITALS: BP 124/66
[2024-04-22] MEDS ORDERED: OxyCODONE HCL 5 MG TAB PO PRN (07:35)
[2024-04-22] MEDS ORDERED: Acetaminophen 500 MG Tab PO PRN (07:40)
[2024-04-22 15:26] VITALS: BP 136/87
[2024-04-22 17:26] VITALS: BP 136/87
[2024-04-22 17:29] VITALS: BP 139/84
--- NOTE | 2024-04-22 18:00 | NUR ---
DISCHARGE NOTE/SHIFT SUMMARY PT HAS BEEN IND TODAY, ALERT, VOIDING APPROPRIATELY, PASSING GAS. PT IS COOPERATIVE W/ CARE AND VERY PLEASANT. LAP SITES TO ABD C/D/I, AZ DRAIN REMOVAL SITE DRAINING SEROUS DRAINAGE BUT IS SLOWING DOWN SINCE LAST SHIFT, DRESSING CHANGED TWICE THIS SHIFT, GAUZE AND TEGADERM. DRESSING CHANGED BEFORE DC. PT'S HAS CONTINUED TO BE FEBRILE THIS SHIFT UP TO 103, TREATED W/ IBUPROFEN AND TYLENOL PER EMAR. PT'S PAIN TREATED W/ OXY PER EMAR AND IS TOLERABLE. PT TREATED FOR NAUSEA ONCE BEFORE DISCHARGE. IV FLUIDS GIVEN ORDERED. VSS BESIDES TEMP, PT DOES BECOME SLIGHTLY TACHY WHEN ANXIOUS BUT DENIES CHEST PAIN/SOB. PAIN TOLERABLE AND DRESSINGS C/D/I AT TIME OF TRANSFER. REPORT GIVEN TO MIREYA RILEY AT 1800 AT [facility]. PT [place] TRANSFERED TO [facility] VIA [facility] W/ SPOUSE.
[2024-04-23 14:59] LABS: OVA AND PARASITE,FECAL INTERP Negative (Negative)
== END 2024-04-22 17:33 | disposition short-term general hospital (02) | DRG 854 ==
LOC: ER 15:42 → ERHOLD 15:43 → SURS 15:43 → ER 23:10 → ERHOLD 23:10 → SURS 23:55
PROVIDERS: Family Medicine; Nurse Practitioner Acute Care; Surgery; ADMIT Surgery
PROC: 3E03329 Introduction of Other Anti-infective into Peripheral Vein, Percutaneous Approach (ICD-10-PCS; 2024-04-14)
PROC: BF502Z0 Other Imaging of Bile Ducts using Fluorescing Agent, Intraoperative (ICD-10-PCS; 2024-04-20)
PROC: 0FT44ZZ Resection of Gallbladder, Percutaneous Endoscopic Approach (ICD-10-PCS; principal; 2024-04-20 10:00)
DX: A41.9 Sepsis, unspecified organism (principal); A02.0 Salmonella enteritis; K80.00 Calculus of gallbladder with acute cholecystitis without obstruction; E87.1 Hypo-osmolality and hyponatremia; I10 Essential (primary) hypertension; E78.5 Hyperlipidemia, unspecified; E87.6 Hypokalemia; D64.9 Anemia, unspecified; E28.2 Polycystic ovarian syndrome; F12.10 Cannabis abuse, uncomplicated; F41.8 Other specified anxiety disorders; B37.31 Acute candidiasis of vulva and vagina; Z98.890 Other specified postprocedural states; Z79.899 Other long term (current) drug therapy; Z87.891 Personal history of nicotine dependence; Z87.59 Personal history of other complications of pregnancy, childbirth and the puerperium
CPT/HCPCS: 0202U; 36415; 36416; 71046; 71260; 72197; 74177; 74300; 78226; 80048; 80053; 80074; 80076; 81003; 81515; 82607; 82728; 82746; 83516; 83540; 83550; 83605; 83735; 84100; 84145; 84703; 85025; 85651; 86038; 86140; 86430; 86850; 86900; 86901; 87040; 87177; 87209; 87389; 87491; 87507; 87591; 88108; 88304; 93306; 96365; 96375; 96376; 99285-25; A9270; A9537; A9579; C1751; C1894; G0378; J0696; J1100; J1171; J1630; J1650; J1885; J2310; J2405; J2543; J2704; J3010; J3480; J7030; J7050; J7060; J7120; Q9967

== ENCOUNTER → 2024-04-14 | Outpatient (CLI) | payer OTHER ==
[2024-04-14 17:38] LABS: Adenovirus F 40/41 Not Detected (NOT DETECT); Astrovirus Not Detected (NOT DETECT); Campylobacter Sp Not Detected (NOT DETECT); Cryptosporidium Not Detected (NOT DETECT); Cyclospora Cayetanensis Not Detected (NOT DETECT); E. Coli O157 Not Detected (NOT DETECT); Entamoeba Histolytica Not Detected (NOT DETECT); Enteroaggregative E. coli-EAEC Not Detected (NOT DETECT); Enteropathogenic E. coli-EPEC Not Detected (NOT DETECT); Enterotoxigenic E. coli-ETEC Not Detected (NOT DETECT); Giardia Lamblia Not Detected (NOT DETECT); Norovirus GI/GII Not Detected (NOT DETECT); Plesiomonas Shigelloides Not Detected (NOT DETECT); Rotavirus A Not Detected (NOT DETECT); Salmonella Sp Detected (NOT DETECT); Sapovirus Not Detected (NOT DETECT); Shiga Toxin-prod E. coli-STEC Not Detected (NOT DETECT); Shigella/Enteroin E. coli-EIEC Not Detected (NOT DETECT); Vibrio Cholerae Not Detected (NOT DETECT); Vibrio Sp Not Detected (NOT DETECT); Yersinia Enterocolitica Not Detected (NOT DETECT)
== END ==
LOC: LAB SHORT 11:20 → EDSTATUS 11:37
PROVIDERS: Physician Assistant Medical
DX: R11.2 Nausea with vomiting, unspecified (principal); R19.7 Diarrhea, unspecified; R10.11 Right upper quadrant pain; R50.9 Fever, unspecified
CPT/HCPCS: 87507